=== PATIENT | male | born 1980 | race African-American/Black ===

== ENCOUNTER 2016-11-27 12:33 | Emergency (ER) | payer SELFPAY ==
[2016-11-27 12:52] VITALS: BP 147/97
--- NOTE | 2016-11-27 12:56 | ER Document Report ---
ED Medical Screen (RME) - General Chief Complaint: Back Pain Stated Complaint: BACK PAIN Time seen by provider: 12:55 Mode of Arrival: Ambulatory Information source: Patient Notes: 36-year-old male presents to ED for low back pain started . Eyes any injury denies any urinary symptoms denies any radiation of pain and denies any chronic history of back pain. I have greeted and performed a rapid initial assessment of this patient. A comprehensive ED assessment and evaluation of the patient, analysis of test results and completion of medical decision making process will be conducted by an additional ED providers. TRAVEL OUTSIDE OF THE [place] IN LAST 30 DAYS: No - Related Data Allergies/Adverse Reactions: No Known Allergies Allergy (Verified 07/05/15 14:26) Past Medical History GI Medical History: Reports: Hx Gastroesophageal Reflux Disease, Hx Hiatal Hernia - Immunizations Hx Diphtheria, Pertussis, Tetanus Vaccination: No Physical Exam - Vital signs Vitals: Temp Pulse Resp BP Pulse Ox 97.9 F 78 16 147/97 H 97 11/27/16 12:51 11/27/16 12:51 11/27/16 12:51 11/27/16 12:51 11/27/16 12:51 Course - Vital Signs Vital signs: Temp Pulse Resp BP Pulse Ox 97.9 F 78 16 147/97 H 97 11/27/16 12:51 11/27/16 12:51 11/27/16 12:51 11/27/16 12:51 11/27/16 12:51
--- NOTE | 2016-11-27 15:15 | ER Document Report ---
HPI - HPI Patient complains to provider of: back pain Pain Level: 4 Context: Patient is a 36-year-old male presents emergency Department complaining of bilateral lower back pain for the past 5 days. Patient states that he did not do anything differently just woke up one morning and had lower back pain. Patient states that he's been taking 800 mg of Motrin every 6 hours with animal improvement in symptoms. Otherwise he states he's been able to ambulate without any difficulty, denies any urinary/stool incontinence, saddle anesthesia. Discussion of her primary care provider Past medical history: Denies Past surgical history denies Social history states that he smokes about a pack a week. - REPRODUCTIVE Reproductive: DENIES: : - DERM Skin Color: Normal Past Medical History - General Information source: Patient - Social History Smoking Status: Current Every Day Smoker Family History: Other - Patient does not know his father's history and states his mother has no problems Patient has suicidal ideation: No Patient has homicidal ideation: No Renal/ Medical History: Denies: Hx Peritoneal Dialysis GI Medical History: Reports: Hx Gastroesophageal Reflux Disease, Hx Hiatal Hernia - Immunizations Hx Diphtheria, Pertussis, Tetanus Vaccination: No Vertical Provider Document - CONSTITUTIONAL Exam Limitations: No Limitations General Appearance: WD/WN, No Apparent Distress - INFECTION CONTROL TRAVEL OUTSIDE OF THE [place] IN LAST 30 DAYS: No - HEENT HEENT: Atraumatic, Normocephalic - NECK Neck: Normal Inspection, Supple - RESPIRATORY O2 Sat by Pulse Oximetry: 97 - CARDIOVASCULAR Pulses: Normal: Radial - BACK Back: Normal Inspection Notes: Tenderness to palpation of the paraspinous muscles of the lower thoracic and upper lumbar spine. Otherwise no deformities but decreased to manage normal gait. - MUSCULOSKELETAL/EXTREMETIES Musculoskeletal/Extremeties: MAEW, FROM, Non-Tender Notes: Strength 5 out of 5 bilateral lower extremities - NEURO Level of Consciousness: Awake, Alert, Appropriate Motor/Sensory: No Motor Deficit, No Sensory Deficit Course - Re-evaluation Re-evalutation: 11/27/16 15:15 This is a 36-year-old male who is hemodynamically stable, no acute distress and afebrile. Complaining of low back pain for the past 5 days that is not responding to [id number] Motrin. Patient educated on the use of heat, ice , low back stretches beneficial for this complaint. - Vital Signs Vital signs: Temp Pulse Resp BP Pulse Ox 97.9 F 78 16 147/97 H 97 11/27/16 12:54 11/27/16 12:54 11/27/16 12:54 11/27/16 12:54 11/27/16 12:54 Discharge - Discharge Clinical Impression: Back pain Qualifiers: Back pain location: low back pain Chronicity: acute Back pain laterality: midline Sciatica presence: without sciatica Qualified Code(s): M54.5 - Low back pain Condition: Good Disposition: HOME, SELF-CARE Additional Instructions: LOW BACK PAIN: Three out of every four people will have an episode of disabling back pain during their lifetime. Most commonly the pain is due to straining of the muscles and ligaments in the low back. Usual treatment includes: (1) Rest on a firm surface. Avoid lying on your stomach. (2) Ice pack the painful area. After a few days, gentle heat may be used intermittently to relax the area, or ice packs can be continued. (3) Medication may be needed -- muscle relaxers and antiinflammatory medicines are commonly used. (4) As the back improves, exercises are prescribed to strengthen the back and abdominal muscles. Your doctor will advise you on the proper care for your back at each stage in your recovery. You may be better in a few days -- or healing may take several weeks. If new symptoms of a "herniated disc" (radiation of pain, numbness, or tingling down the back of the leg or weakness in the leg) occur, you should be re-examined. Further testing may be necessary. MUSCLE RELAXERS: Muscle relaxing medications are usually prescribed for acute muscle spasm or injury to the neck and back. They are often combined with antiinflammatory pain medication for increased relief. You may stop the muscle relaxer when the pain and stiffness have improved. Start the medication again if spasms recur. Muscle relaxers may cause drowsiness, especially with the first dose. Do not operate machinery or drive while under the effects of the medication. Most muscle relaxers last up to 24 hours. Do not combine the medication with alcohol. ICE PACKS: Apply ice packs frequently against the painful area. Many different schedules are recommended, such as "20 minutes on, 20 minutes off" or "one hour ice, two hours rest." If you need to work, you may need to go longer between ice treatments. You should plan to have the area ice packed AT LEAST one fourth of the time. The ice should be applied over the wrap, tape, or splint, or over a layer of cloth -- not directly against the skin. Some ice bags have a built-in cloth and can be put directly on the skin. WARM PACKS: After approximately two days, apply gentle heat (such as a heating pad or hot water bottle) for about 20 to 30 minutes about every two hours -- at least four times daily. Warmth and elevation will help you make a more rapid recovery , and will ease the pain considerably. Do not use HOT heat, and never apply heat for longer than 30 minutes. The continuous heat can invisibly damage skin and muscles -- even when no burn is seen on the surface. Damaged muscles can make you MORE sore. FOLLOW-UP CARE: If you have been referred to a physician for follow-up care, call the physician s office for an appointment as you were instructed or within the next two days. If you experience worsening or a significant change in your symptoms, notify the physician immediately or return to the Emergency Department at any time for re-evaluation. Prescriptions: Cyclobenzaprine HCl [Flexeril 10 mg Tablet] 10 mg PO TIDP PRN #15 tab PRN Reason: Ibuprofen [Motrin 800 mg Tablet] 800 mg PO Q8H PRN #30 tab PRN Reason: Forms: Elevated Blood Pressure
== END 2016-11-27 15:21 | disposition home or self-care (01) ==
LOC: ER 12:33
DX: M54.5 Low back pain (principal); F17.200 Nicotine dependence, unspecified, uncomplicated
CPT/HCPCS: 72110; 99283

== ENCOUNTER 2018-07-24 00:02 | Emergency (ER) | payer SELFPAY ==
--- NOTE | 2018-07-24 03:48 | ER Document Report ---
ED Syncope and Near Syncope - General Chief Complaint: Syncope Stated Complaint: SYNCOPE Time Seen by Provider: 07/24/18 03:27 Notes: Patient is a 38-year-old male presenting to the emergency department complaining of syncopal episodes 2 this evening. Patient stated he felt lightheaded dizzy and hot fell to his knees and then does not recall anything after that event. is in the room with patient stating she did not originally see the patient fall but heard the commotion. Stated when she saw the patient he was getting up from his knees but was not making any sense. then stated patient had another episode of syncope where his friend caught him, laid him on the ground and the reports "stiff arms and legs" at that time. denies any shaking activity. Patient states the next thing he remembers is being in the ambulance. stated that the pt. "was not making any sense afterwards, even after they put him in the ambulance." Patient denies CP, SOB, nausea, vomiting, diarrhea, fever, URI symptoms, abdominal pain , headache, current lightheaded or dizzy feeling. Pt. stated, "I just feel really tired." Patient denies any past medical history, denies taking daily medications, denies any allergies, denies any surgical history. Patient also states he is unsure when the last time he saw a primary care provider. Patient admits to smoking cigarettes, EtOH use, marijuana use. Patient states he was drinking this evening and had also smoked marijuana. TRAVEL OUTSIDE OF THE [place] IN LAST 30 DAYS: No - Related Data Allergies/Adverse Reactions: No Known Allergies Allergy (Verified 07/05/15 14:26) Past Medical History - General Information source: Patient, Relative - Social History Smoking Status: Current Every Day Smoker Lives with: Family Family History: Reviewed & Not Pertinent, Other - Patient does not know his father's history and states his mother has no problems Renal/ Medical History: Denies: Hx Peritoneal Dialysis GI Medical History: Reports: Hx Gastroesophageal Reflux Disease, Hx Hiatal Hernia - Immunizations Hx Diphtheria, Pertussis, Tetanus Vaccination: No Review of Systems - Review of Systems Constitutional: See HPI EENT: See HPI Cardiovascular: See HPI Respiratory: See HPI Gastrointestinal: See HPI Genitourinary: No symptoms reported Male Genitourinary: No symptoms reported Musculoskeletal: No symptoms reported Skin: No symptoms reported Hematologic/Lymphatic: No symptoms reported Neurological/Psychological: See HPI Physical Exam - Vital signs Vitals: Temp Pulse Resp BP Pulse Ox 98.7 F 99 18 129/83 H 96 07/24/18 00:02 07/24/18 00:02 07/24/18 00:02 07/24/18 00:02 07/24/18 00:02 - Notes Notes: GENERAL: Alert, interacts well. No acute distress. HEAD: Normocephalic, atraumatic. EYES: Pupils equal, round, and reactive to light. Extraocular movements intact. ENT: Oral mucosa moist, tongue midline. Nares patent, no nasal septal hematoma, TM's intact. NECK: Full range of motion. Supple. Trachea midline. LUNGS: Clear to auscultation bilaterally, no wheezes, rales, or rhonchi. No respiratory distress. HEART: Regular rate and rhythm. No murmur ABDOMEN: Soft, non-tender. Non-distended. Bowel sounds present in all 4 quadrants. EXTREMITIES: Moves all 4 extremities spontaneously. No edema, normal radial and dorsalis pedis pulses bilaterally. No cyanosis. BACK: no cervical, thoracic, lumbar midline tenderness. No saddle anesthesia, normal distal neurovascular exam. NEUROLOGICAL: Alert and oriented x3. Normal speech. cranial nerves II through XII grossly intact. PSYCH: Normal affect, normal mood. SKIN: Warm, dry, normal turgor. No rashes or lesions noted. Course - Re-evaluation Re-evalutation: Due to Pt. presenting with stiffness in both arms and legs, what sounds like a postictal phase, and then that the pt. felt "drained" and tired after event, sz is most likely. Discussed possible seizure diagnosis with patient and in depth. Return precautions given. - Vital Signs Vital signs: Temp Pulse Resp BP Pulse Ox 98.7 F 99 17 142/96 H 97 07/24/18 00:02 07/24/18 00:02 07/24/18 06:01 07/24/18 06:01 07/24/18 06:01 - Laboratory Result Diagrams: 07/24/18 03:57 07/24/18 04:40 Laboratory results interpreted by me: 07/24/18 07/24/18 03:57 04:40 WBC 16.1 H RDW 14.1 H Absolute Neutrophils 12.5 H Glucose 118 H Calcium 11.8 H Discharge - Discharge Clinical Impression: Seizure Condition: Stable Disposition: HOME, SELF-CARE Additional Instructions: Seizure You have most likely had a seizure. Seizure disorders (epilepsy) of one sort or another affect about one out of 50 people. The seizure occurs because of abnormal electrical activity in the brain. Seizures may be due to drugs and alcohol, strokes, brain injury, or infection. In the most common form of epilepsy, no cause can be found. You will require further evaluation to determine the cause of your seizure, and to determine whether anti-seizure medication is required. This follow-up testing is important, so please call us if you encounter problems with scheduling of tests or appointments. YOU SHOULD NOT DRIVE until released to do so by your physician. The law requires that seizures be reported to the [employer] driver's license bureau--a seizure while driving could be catastrophic. Call the doctor if seizures recur, or if you develop new symptoms such as fever, severe headache, stiff neck, confusion or increasing sleepiness, weakness or numbness, or visual problems. Again like we discussed you should not drive a vehicle, do not bathe alone, do not swim alone. Follow-up with neurology phone number given. Prescriptions: Diazepam [Diastat] 2.5 mg RC ASDIR PRN #1 kit PRN Reason: Referrals: FRANKO SANTOS MD [NO LOCAL MD] - Follow up as needed
[2018-07-24 04:13] LABS: ABSOLUTE BASOPHILS # (AUTO) 0.1 10^3/uL (0.0-0.2); ABSOLUTE EOSINOPHILS # (AUTO) 0.1 10^3/uL (0.0-0.6); ABSOLUTE LYMPHOCYTES (AUTO) 2.5 10^3/uL (0.5-4.7); ABSOLUTE MONOCYTES (AUTO) 0.9 10^3/uL (0.1-1.4); ABSOLUTE NEUT (AUTO) 12.5 10^3/uL (1.7-8.2); BASOPHILS % (AUTO) 0.6 % (0-2); EOSINOPHILS % (AUTO) 0.5 % (0-6); LYMPHOCYTES % (AUTO) 15.5 % (13-45); MEAN CORPUSCULAR HEMOGLOBIN 30.9 pg (27.0-33.4); MEAN CORPUSCULAR HGB CONC 33.3 g/dL (32.0-36.0); MEAN CORPUSCULAR VOLUME 93 fl (80-97); MONOCYTES % (AUTO) 5.6 % (3-13); PLATELET COUNT 227 10^3/uL (150-450); RED CELL DISTRIBUTION WIDTH 14.1 % (11.5-14.0); SEGMENTED NEUTROPHILS % (AUTO) 77.8 % (42-78); TOTAL CELLS COUNTED % (AUTO) 100 %; WHITE BLOOD COUNT 16.1 10^3/uL (4.0-10.5)
--- NOTE | 2018-07-24 04:30 | RADIOLOGY REPORT (SQ) ---
EXAM DESCRIPTION: CT HEAD WITHOUT IV CONTRAST COMPLETED DATE/TME: 07/24/2018 03:42 CLINICAL HISTORY: syncope, stiff movements COMPARISON: None available TECHNIQUE: Axial CT of the head obtained from the skull apex to the skull base without contrast. FINDINGS: No acute intracranial hemorrhage identified. No mass, mass effect, shift of the midline, abnormal extra-axial fluid collection or CT evidence of acute ischemic change identified. The ventricular system is unremarkable. No acute abnormalities of the supratentorial white matter, basal ganglia, cerebellum, or brainstem. The visualized paranasal sinuses and the mastoids are clear. No skull fracture identified. Visualized orbits and globes are unremarkable. DLP:1017.17 mGy-cm IMPRESSION: 1. No acute intracranial abnormality identified. This exam was performed according to our departmental dose-optimization program, which includes automated exposure control, adjustment of the mA and/or kV according to patient size and/or use of iterative reconstruction technique.
--- NOTE | 2018-07-24 04:32 | RADIOLOGY REPORT (SQ) ---
EXAM DESCRIPTION: X-ray single view chest CLINICAL HISTORY: 38 years Male, syncope COMPARISON: Prior chest x-ray performed on 07/05/2015. TECHNIQUE: Single portable view of the chest performed on 07/24/2018 at 4:31 AM FINDINGS: The lungs are well expanded and are clear. There is stable parenchymal scarring in the left inferior hemithorax. There is no evidence of a pneumothorax. The cardiac silhouette is normal in size and configuration. The mediastinal contours are normal. No acute osseous abnormality is identified. No focal soft tissue abnormalities are seen. There are multiple overlying shelter monitor leads. IMPRESSION: 1. No acute intrathoracic disease. 2. Stable parenchymal scarring in the left inferior hemithorax.
[2018-07-24 05:18] LABS: ALANINE AMINOTRANSFERASE 39 U/L (21-72); ALBUMIN 4.1 g/dL (3.5-5.0); ALKALINE PHOSPHATASE 100 U/L (38-126); ANION GAP 7 (5-19); ASPARTATE AMINO TRANSFERASE 27 U/L (17-59); BILIRUBIN,DIRECT 0.4 mg/dL (0.0-0.4); BILIRUBIN,TOTAL 0.5 mg/dL (0.2-1.3); BLOOD UREA NITROGEN 14 mg/dL (7-20); CARBON DIOXIDE 26 mmol/L (22-30); CHLORIDE 107 mmol/L (98-107); CREATINE KINASE 67 U/L (55-170); GLUCOSE 118 mg/dL (75-110); POTASSIUM 4.9 mmol/L (3.6-5.0); SODIUM 140.1 mmol/L (137-145); TOTAL PROTEIN 6.8 g/dL (6.3-8.2)
[2018-07-24 05:20] LABS: ALCOHOL < 10 mg/dL (NONE DETECTED)
[2018-07-24 05:28] LABS: CALCIUM 11.8 mg/dL (8.4-10.2)
[2018-07-24 05:34] LABS: CREATINE KINASE MB 0.35 ng/mL (<4.55)
[2018-07-24 05:35] LABS: TROPONIN I < 0.012 ng/mL
[2018-07-24 06:15] VITALS: BP 142/96
--- NOTE | 2018-07-24 11:43 | EKG REPORT ---
SEVERITY:- OTHERWISE NORMAL ECG - SINUS RHYTHM ST ELEV, PROBABLE NORMAL EARLY REPOL PATTERN : Confirmed by: Ritu Mo MD 24-Jul-2018 11:42:19
== END 2018-07-24 06:22 | disposition home or self-care (01) ==
LOC: ER 00:02
DX: R56.9 Unspecified convulsions (principal); F17.210 Nicotine dependence, cigarettes, uncomplicated; R55 Syncope and collapse
CPT/HCPCS: 36415; 70450; 71045; 80053; 80307; 82550; 82553; 84484; 85025; 93005; 93010; 99285